=== PATIENT | female | born 1965 | race African-American/Black ===

== ENCOUNTER 2020-11-18 10:24 | Emergency (ER) | payer BC, SELFPAY ==
[2020-11-18 10:40] VITALS: BP 160/62; PULSE 80; RESP 16; TEMP 36.7; O2SAT 98
--- NOTE | 2020-11-18 11:07 | ED.GENADULT ---
HPI - General Adult General Chief complaint: Upper Respiratory Infection Stated complaint: sore throat Source: patient Mode of arrival: ambulatory Limitations: no limitations History of Present Illness HPI narrative: Patient is a 54-year-old -[place] female presents to [facility] care via POV for evaluation of a cold symptoms that began approximately 3 days ago. Additionally, she reports sore throat, swollen lymph nodes, and dry cough. She reports her throat pain is constant and raw/scratchy in nature. Current pain level is 6 out of 10. Mild relief with DayQuil, NyQuil, and OTC decongestants. Swallowing worsens throat pain. Patient reports she is fully vaccinated against Covid. Denies known exposure to sick contacts. She is requesting rapid Covid test today. Related Data Home Medications Medication Instructions Recorded Confirmed glimepiride 2 mg tablet 4 mg PO QAM tablet 07/08/19 02/25/20 insulin degludec 100 unit/mL 20 unit SUB-Q DAILY 07/08/19 02/25/20 subcutaneous solution losartan 25 mg tablet 25 mg PO DAILY 07/08/19 02/25/20 naproxen 250 mg tablet 250 mg PO BID PRN 07/08/19 02/25/20 semaglutide 0.25 mg SUB-Q WEEKLY 07/08/19 02/25/20 Allergies Allergy/AdvReac Type Severity Reaction Status Date / Time clarithromycin Allergy Unknown Nausea Verified 02/25/20 13:54 codeine Allergy Unknown Nausea Verified 02/25/20 13:54 Penicillins Allergy Unknown Rash Verified 02/25/20 13:54 tramadol AdvReac Intermediate Hallucinati Verified 02/25/20 13:54 ng Review of Systems Review of Systems: Denies history of COPD, bronchitis, asthma, and pneumonia. Denies current/past tobacco use. Pertinent negatives: fever, sweats, chills, change in appetite, fatigue, skin color changes, headache, nasal congestion/discharge, dizziness, sinus problems, ear pain/drainage, chest pain, heart murmurs, heart palpitations, shortness of breath, wheezing, cyanosis, hemoptysis, hoarseness, orthopnea, pleuritic pain, nausea, vomiting, diarrhea, and myalgias. [facility] Past Medical History Medical History Diabetes Hypercholesteremia Hypertension Inflammatory arthritis Small fiber neuropathy Surgical History Surgical History Hx of breast reduction, elective Previous section Family History Family History Mother Patient's mother is in good health Father Patient's father is in good health Sibling Patient's sister is in good health Other Diabetes mellitus Family history of arthritis Family history of hypercholesterolemia Family history of obesity Hypertension Social History Social History Smoking status: Never smoker Alcohol intake: current Comments I have reviewed and agree with the patient's past medical, surgical, social, and family hx as documented by the RN. There is no relevant family history pertinent to the presenting complaint. Exam Narrative: GENERAL: Well-appearing, well-nourished, and in no acute distress. HEAD: Normocephalic, atraumatic. No sinus tenderness or facial swelling appreciated. EYES: PERRLA and EOMI. No evidence of erythema, swelling, or drainage. ENT: Bilateral external ears and ear canals normal. Bilateral TMs are normal.No TM perforation. Nares clear, no rhinorrhea or epistaxis. Bilateral turbinates without erythema/ swelling. Mucous membranes moist and pink. Uvula is midline without erythema and swelling. No evidence of petechial rash, cobblestoning, lesions, ulcers, exudates, peritonsillar abscess, tenting, or drooling. Breath odor and voice normal. Bilateral tonsils are mildly edematous and erythematous. NECK: Supple. No Lymphadenopathy or nuchal rigidity appreciated. CHEST: Bilateral lung kern are clear to auscultation. No respiratory distress. N
== END 2020-11-18 12:05 | disposition home or self-care (01) ==
PROVIDERS: Emergency Provider Nurse Practitioner Family
DX: J06.9 Acute upper respiratory infection, unspecified (principal); Z20.822 Contact with and (suspected) exposure to COVID-19; E11.9 Type 2 diabetes mellitus without complications; E78.00 Pure hypercholesterolemia, unspecified; I10 Essential (primary) hypertension; M06.9 Rheumatoid arthritis, unspecified; G62.9 Polyneuropathy, unspecified
CPT/HCPCS: 87081; 87426; 87880; 99213; C9803; G0463

== ENCOUNTER 2021-04-05 13:14 | Outpatient (RCR) | payer BC, SELFPAY ==
[2021-04-05 13:12] VITALS: BMI 40.9
[2021-04-05 13:27] VITALS: BMI 40.9
== END 2021-06-20 10:42 | disposition home or self-care (01) ==
LOC: ANHDMC 13:14
PROVIDERS: Visit Provider Internal Medicine Endocrinology, Diabetes & Metabolism
DX: E11.65 Type 2 diabetes mellitus with hyperglycemia (principal); Z71.3 Dietary counseling and surveillance
CPT/HCPCS: 97802